=== PATIENT | female | born 1980 | race African-American/Black ===

== ENCOUNTER 2018-09-18 17:22 | Emergency (ER) | payer SELFPAY ==
[~2018-09-18] VITALS: Ht 177.8 cm; Wt 129.3 kg
[2018-09-18] MEDS ORDERED: IPRATROPIUM BROMIDE 0.02% 2.5 ML NEB NEB STA (17:29)
[2018-09-18] MEDS ORDERED: ALBUTEROL SULF 0.083% NEB SOLN 3 ML NEB NEB STA (17:29)
[2018-09-18] MEDS ORDERED: DEXAMETHASONE SOD PHOS 10 MG/1 ML VIAL IM ONE (17:30)
[2018-09-18] MEDS ORDERED: ALBUTEROL SULF 0.083% NEB SOLN 3 ML NEB ONE (18:49)
[2018-09-18] MEDS ORDERED: IPRATROPIUM BROMIDE 0.02% 2.5 ML NEB ONE (18:50)
--- NOTE | 2018-09-18 19:27 | Diagnostic Imaging Report ---
EXAMINATION: CHEST SINGLE (NOT PORTABLE) INDICATION: ^ Breathing inconsistent ^[id number] ^184 ^Y COMPARISON: None FINDINGS: AP view TUBES and LINES: None. LUNGS/PLEURA: Low lung volumes, otherwise the lungs are clear. No pleural effusion or pneumothorax. HEART AND MEDIASTINUM: The cardiomediastinal silhouette is unremarkable. BONES AND SOFT TISSUES: No acute osseous lesion. Soft tissues are unremarkable. UPPER ABDOMEN: No free air under the diaphragm. IMPRESSION: No acute thoracic abnormality. Signed by: Paul Gonzales MD on 09/18/2018 7:24 PM
--- NOTE | 2018-09-18 20:00 | NUR ---
pt left er without paperwork and rx. pt called at home message left that paperwork and rx at nurses station to be picked up.
== END 2018-09-18 20:00 | disposition home or self-care (01) ==
LOC: EDBD 17:22 → ER 17:22
DX: R05 Cough (principal); J45.30 Mild persistent asthma, uncomplicated
CPT/HCPCS: 71045; 94640

== ENCOUNTER 2018-12-28 23:32 | Emergency (ER) | payer MEDICARE ==
[~2018-12-28] VITALS: Ht 177.8 cm; Wt 136.1 kg
[2018-12-28] MEDS ORDERED: ONDANSETRON HCL INJ 2MG/ML 2ML 2 MG/ML VIAL IV STA (23:44)
[2018-12-28] MEDS ORDERED: SODIUM CHLORIDE 0.9% 1000ML 1,000 ML IV ONE (23:45)
[2018-12-28] MEDS ORDERED: ONDANSETRON HCL INJ 2MG/ML 2ML 2 MG/ML VIAL ONE (23:48)
[2018-12-28] MEDS ORDERED: DIATRIZOATE MEGL/DIATRIZOA SOD 30 ML BTL PO ONE (23:56)
[2018-12-29 00:16] LABS: BASOPHILS % 0.2 % (0.0-1.0); EOSINOPHILS # (AUTO) 0.2 (0.0-0.4); EOSINOPHILS % 2.7 % (0.0-6.0); HEMATOCRIT 32.6 % (34.2-44.1); HEMOGLOBIN 10.9 g/dL (12.0-16.0); LYMPHOCYTES # (AUTO) 2.3 (1.0-3.2); LYMPHOCYTES % 28.2 % (18.0-39.1); MEAN CORPUSCULAR HEMOGLOBIN 28.8 pg (28-32); MEAN CORPUSCULAR HGB CONC 33.4 g/dL (31-35); MEAN CORPUSCULAR VOLUME 86.2 fL (81-99); MONOCYTES # (AUTO) 0.7 (0.2-0.8); MONOCYTES % 8.1 % (4.4-11.3); NEUTROPHILS % 60.6 % (38.7-80.0); PLATELET COUNT 282 x10e3/uL (140-360); RED BLOOD COUNT 3.78 x10e6/uL (3.6-5.1); RED CELL DISTRIBUTION WIDTH 13.2 % (11.7-14.4)
[2018-12-29 00:27] LABS: ALANINE AMINOTRANSFERASE 6 IU/L (0-55); ALBUMIN 3.4 g/dL (3.5-5.0); ALBUMIN/GLOBULIN RATIO 1.1 (0.8-2.0); ALKALINE PHOSPHATASE 34 IU/L (40-150); AMYLASE 73 U/L (25-125); ANION GAP 12.1 mmol/L (8-16); BLOOD UREA NITROGEN 8 mg/dL (7-26); BUN/CREATININE RATIO 13 (6-25); CALCIUM 9.1 mg/dL (8.4-10.2); CARBON DIOXIDE 18 mmol/L (22-29); CHLORIDE 102 mmol/L (98-107); CREATININE, SERUM 0.61 mg/dL (0.57-1.11); EST GLOMERULAR FILTRATION RATE > 60 ML/MIN (60-); GLUCOSE 98 mg/dL (74-118); LIPASE 22 U/L (8-78); POTASSIUM 3.1 mmol/L (3.5-5.1); SODIUM 129 mmol/L (136-145)
--- NOTE | 2018-12-29 02:18 | Diagnostic Imaging Report ---
EXAM: First Trimester Obstetric Pelvic Ultrasound INDICATION: Left lower quadrant pain COMPARISON: None TECHNIQUE: Grayscale transverse and sagittal transabdominal and transvaginal images were obtained of the pelvis. Transvaginal imaging was medically necessary to better evaluate the endometrium, adnexa, and fetus. CLINICAL HISTORY: 38 year old A1 Last menstrual period: 11/20/2018 Clinical gestational age: 5 weeks 4 days FINDINGS: Uterus: Orientation: Normal Size: 10 x 5.7 x 7.3 cm, enlarged Mass: A 5.2 cm intramural fibroid in the left uterine wall. Cervix: Normal Gestational Sac: Location: Intrauterine Average sac diameter: 2.52 cm Estimated sonographic GA: 7 weeks 3 days Appearance: Normal in contour Subchorionic hemorrhage: None Yolk sac: Normal Embryo/Fetus: [place] rump length: 0.67 cm Estimated sonographic GA: 6 weeks 4 days Cardiac activity: 113 bpm The ovaries are not visualized, due to obscuration by bowel gas. No abnormalities identified in the adnexa. Cul-de-sac: No free fluid IMPRESSION: 1. Viable intrauterine : Routine followup. 2. Estimated sonographic gestational age: 6 weeks 4 days 3. Left uterine fibroid. CLASSIFICATION Viable: can potentially result in a liveborn baby Visualized embryo with FHT Nonviable: Findings diagnostic of failure * Ectopic * CRL >= 7 mm and no FHT * MSD >= 25 mm and no embryo * No FHT >= 2 weeks after US showed GS w/o YS * No FHT >= 11 days after US showed GS w/ YS Intrauterine of uncertain viability: Intrauterine GS with no FHT and no definite findings of failure of unknown location: Positive urine or serum test and no IUP or ectopic on US Diagnostic Criteria for Nonviable Early in the First Trimester N Engl J Med 2013;369:1443-51. DOI: 10.1056/[id number] Signed by: Taqueria Mahoney DO on 12/29/2018 2:15 AM
[2018-12-29 02:31] LABS: BILIRUBIN,URINE NEGATIVE (NEGATIVE); CLARITY,URINE CLEAR (CLEAR); COLOR,URINE YELLOW (YELLOW); KETONES,URINE NEGATIVE (NEGATIVE); LEUKOCYTE ESTERASE ,URINE TRACE (NEGATIVE); NITRITE,URINE NEGATIVE (NEGATIVE); PROTEIN,URINE DIPSTICK NEGATIVE (NEGATIVE); URINE UROBILINOGEN 0.2 mg/dL (0.2 - 1)
[2018-12-29 03:07] LABS: BACTERIA,URINE RARE /HPF; EPITHELIAL CELLS,URINE RARE /LPF; RBC,URINE 0-5 /HPF (0-5)
--- NOTE | 2018-12-29 04:18 | Diagnostic Imaging Report ---
EXAMINATION: CHEST SINGLE (PORTABLE) INDICATION: Cough COMPARISON: Chest radiograph 09/18/2018 FINDINGS: AP view TUBES and LINES: None. LUNGS: Lungs are well inflated. Lungs are clear. There is no evidence of pneumonia or pulmonary edema. PLEURA: No pleural effusion or pneumothorax. HEART AND MEDIASTINUM: The cardiomediastinal silhouette is unremarkable. BONES AND SOFT TISSUES: No acute osseous lesion. Soft tissues are unremarkable. UPPER ABDOMEN: No free air under the diaphragm. IMPRESSION: No acute thoracic abnormality. Signed by: Taqueria Mahoney DO on 12/29/2018 4:14 AM
--- OUTSIDE RECORDS SUMMARY | 2018-12-29 04:35 | XMS REPORT ---
Author Author Trista Mcfadden Organization [employer] Address Unknown Phone Unavailable Care Team Providers Care Program Supervisor Name Role Phone Trista Mcfadden CP Unavailable Allergies, Adverse Reactions, Alerts Substance Reaction Event Type N.K.D.A. 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 Citizen Of [place] May 17, 2016 Marital Status: single. May 17, 2016 Caffeine: yes. frequency:3-4 per week May 17, 2016 Exercise: no. May 17, 2016 Smoking/Tobacco Use: no. Patient is a: Never Smoker May 17, 2016 Alcohol: socially. 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
--- OUTSIDE RECORDS SUMMARY | 2018-12-29 04:35 | XMS REPORT ---
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
--- OUTSIDE RECORDS SUMMARY | 2018-12-29 04:35 | XMS REPORT | Continuity of Care Document ---
Author Author [employer] [facility] [employer] Address Unknown Phone Unavailable Care Team Providers Care Detective Lieutenant Name Role Phone [employer] Unavailable Unavailable Problems Problem Status Onset Date Classification Date Reported Comments Source E04.2 - NONTOXIC MULTINODULAR GOITER Active 02/20/2016 [facility] Other obesity due to excess calories Active Problem 10/20/2016 eCW: Galindo Mcfadden No-show for appointment Active Diagnosis 10/20/2016 eCW: Galindo Mcfadden Nontoxic single thyroid nodule Active Problem 10/20/2016 eCW: Galindo Mcfadden Medications No Data Provided for This Section Allergies, Adverse Reactions, Alerts Substance Category Reaction Severity Reaction type Status Date Reported Comments Source N.K.D.A. Adverse Reaction Info Not Available Adverse Reaction Active 05/17/2016 eCW: Galindo Mcfadden Immunizations No Data Provided for This Section Results No Data Provided for This Section Pathology Reports No Data Provided for This Section Diagnostic Reports Report Value Date Source Thyroid biopsy w guidance US FNA of left thyroid mass HISTORY: LT THYROID NODULE; COMPARISON: Thyroid ultrasound dated February 20, 2016 TECHNIQUE: After obtaining informed consent and explaining the risks and benefits of the procedure to the patient, the patient was placed on the ultrasound table in a supine position. Patient's questions were answered. The overlying area was cleaned with ChloraPrep and anesthetize with 2% Xylocaine. Using ultrasound guidance, a 25-gauge needle was placed into the 5.7 x 3.5 x 4.4 cm mass in the left lobe of the thyroid gland. 5 separate passes were made. The obtained material was placed on glass slides and additional material placed in CytoLyt solution and sent to cytology for further analysis. The patient tolerated the procedure well and no immediate complications were noted. SL: [id number] 03/12/2016 [facility] Thyroid US Study: Thyroid US Age: 35 years y/o Female Clinical Indication: Neck mass; Comparison: None TECHNIQUE: Sonographic evaluation of the thyroid gland is performed FINDINGS: The right thyroid gland measures 6.0 cm x 1.5 cm x 2.2 cm. The left thyroid gland measures 6.0 cm x 3.4 cm x 4.6 cm. The thyroid isthmus measures about 2.8 mm. There is marked heterogeneous thyroid parenchymal echotexture. Large dominant about 5.5 cm x 3.3 cm x 4.5 cm complex mass is present within the left thyroid lobe. IMPRESSION: 1. Heterogeneous thyroid with large dominant complex left thyroid lobe mass as detailed above. Thyroid FNA biopsy should be consider for further evaluation. SL: [id number] [facility]20[facility] Consultation Notes No Data Provided for This Section Discharge Summaries No Data Provided for This Section History and Physicals No Data Provided for This Section Vital Signs Vital Sign Value Date Comments Source Weight 286 05/17/2016 eCW: Galindo Mcfadden Height 70 05/17/2016 eCW: Galindo Mcfadden Diastolic (mm Hg) 76 05/17/2016 eCW: Galindo Mcfadden Systolic (mm Hg) 122 05/17/2016 eCW: Galindo Mcfadden Encounters Location Location Details Encounter Type Encounter Number Reason For Visit Attending Provider ADM Date DC Date Status Source [facility] Outpatient Imaging [facility] Outpt Diag Services [id number] Arron Bonilla 02/20/2016 02/21/2016 [facility] Imaging [facility] Outpt Diag Services [id number] rAron Bonilla 03/12/2016 03/13/2016 [facility] Galindo Mcfadden MD New Consult Thyroid [id number] 05/17/2016 05/17/2016 eCW: Galindo Mcfadden Procedures No Data Provided for This Section Assessment and Plan No Data Provided for This Section Plan of Care No Data Provided for This Section Social History Social History Date Source Social History ElementQualifiersDate Reported Language: . Danish May 17, 2016 Marital Status: single. May 17, 2016 Caffeine: yes. frequency:3-4 per week May 17, 2016 Exercise: no. May 17, 2016 Smoking/Tobacco Use: no. Patient is a: Never Smoker May 17, 2016 Alcohol: socially. 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
--- OUTSIDE RECORDS SUMMARY | 2018-12-29 04:35 | XMS REPORT | Summary of Care ---
Author Author [facility] Outpatient Imaging [facility] Outpatient Imaging [facility] Address Unknown Phone Unavailable Encounter HQ Encntr_alias(FIN) [id number] Date(s): 02/20/16 - 02/20/16 [facility] Outpatient Imaging [facility] [address] [facility] [address] [place], [place] [address]- [phone] Discharge Disposition: Home or Self Care Attending Physician: Arron Bonilla MD Vital Signs No data available for this section Problem List No data available for this section Allergies, Adverse Reactions, Alerts Substance Reaction Severity Status NKDA Active Medications No data available for this section Results No data available for this section Immunizations No data available for this section Procedures No data available for this section Social History No data available for this section Assessment and Plan No data available for this section
--- OUTSIDE RECORDS SUMMARY | 2018-12-29 04:35 | XMS REPORT ---
[facility] Address Unknown Phone Unavailable Care Team Providers Care Research Anthropologist Name Role Phone Chloe LENZ Unavailable Unavailable Kassie CROCKETT Unavailable Unavailable Payers Payer Name Policy Type Policy Number Effective Date Expiration Date Problems This patient has no known problems. Allergies, Adverse Reactions, Alerts Allergy Name Allergy Type Status Severity Reaction(s) Onset Date Inactive Date Treating Clinician Comments No Known Allergies DA Active U 2012-10-04 00:00:00 Medications This patient has no known medications. Results Test Description Test Time Test Comments Text Results Atomic Results Result Comments CHEST SINGLE (PORTABLE) 2018-12-29 04:13:00 [place] [address] Patient Name: HENRY YODER MR #: [id number] : 1980 Age/Sex: 38/F Req #: [id number] Adm Physician: Ordered by: KASEY LENZ MD Report #: [id number] Location: ER Room/Bed: Procedure: [id number] DX/CHEST SINGLE (PORTABLE) Exam Date: 12/29/18 Exam Time: 0055 REPORT STATUS: Signed EXAMINATION: CHEST SINGLE (PORTABLE) INDICATION: Cough COMPARISON: Chest radiograph 09/18/2018 FINDINGS: AP view TUBES and LINES: None. LUNGS: Lungs are well inflated. Lungs are clear. There is no evidence of pneumonia or pulmonary edema. PLEURA: No pleural effusion or pneumothorax. HEART AND MEDIASTINUM: The cardiomediastinal silhouette is unremarkable. BONES AND SOFT TISSUES: No acute osseous lesion. Soft tissues are unremarkable. UPPER ABDOMEN: No free air under the diaphragm. IMPRESSION: No acute thoracic abnormality. Signed by: Taqueria Mahoney DO on 12/29/2018 4:14 AM Dictated By: TAQUERIA MAHONEY DO 3 Transcribed By: FERN on 12/29/18413 COPY TO: KASEY LENZ MD OB 1st TRIM SINGLE GEST 2018-12-29 02:11:00 [place] [address] Patient Name: HENRY YODER MR #: [id number] : 1980 Age/Sex: 38/F Req #: [id number] Adm Physician: Ordered by: KASEY LENZ MD Report #: [id number] Location: ER Room/Bed: Procedure: [id number] US/US OB 1st TRIM SINGLE GEST Exam Date: 12/29/18 Exam Time: 127 REPORT STATUS: Signed EXAM: First Trimester Obstetric Pelvic Ultrasound INDICATION: Left lower quadrant pain COMPARISON: None TECHNIQUE: Grayscale transverse and sagittal transabdominal and transvaginal images were obtained of the pelvis. Transvaginal imaging was medically necessary to better evaluate the endometrium, adnexa, and fetus. CLINICAL HISTORY: 38 year old A1 Last menstrual period: 11/20/2018 Clinical gestational age: 5 weeks 4 days FINDINGS: Uterus: Orientation: Normal Size: 10 x 5.7 x 7.3 cm, enlarged Mass: A 5.2 cm intramural fibroid in the left uterine wall. Cervix: Normal Gestational Sac: Location: Intrauterine Average sac diameter: 2.52 cm Estimated sonographic GA: 7 weeks 3 days Appearance: Normal in contour Subchorionic hemorrhage: None Yolk sac: Normal Embryo/Fetus: [place] rump length: 0.67 cm Estimated sonographic GA: 6 weeks 4 days Cardiac activity: 113 bpm The ovaries are not visualized, due to obscuration by bowel gas. No abnormalities identified in the adnexa. Cul-de-sac: No free fluid IMPRESSION: 1. Viable intrauterine : Routine followup. 2. Estimated sonographic gestational age: 6 weeks 4 days 3. Left uterine fibroid. CLASSIFICATION Viable: can potentially result in a liveborn baby Visualized embryo with FHT Nonviable: Findings diagnostic of failure * Ectopic * CRL >=7 mm and no FHT * MSD >=25 mm and no embryo * No FHT >=2 weeks after US showed GS w/o YS * No FHT >=11 days after US showed GS w/ YS Intrauterine of uncertain viability: Intrauterine GS with no FHT and no definite findings of failure of unknown location: Positive urine or serum test and no IUP or ectopic on US Diagnostic Criteria for Nonviable Early in the First Trimester N Engl J Med 2013;369:1443-51. DOI: [id number] Signed by: Taqueria Mahoney DO on 12/29/2018 2:15 AM Dictated By: TAQUERIA MAHONEY DO 4 Transcribed By: FERN on 12/29/18214 COPY TO: KASEY LENZ MD CHEST SINGLE (NOT PORTABLE) 2018-09-18 19:23:00 [place] [address] Patient Name: HENRY YODER MR #: [id number] : 1980 Age/Sex: 37/F Req #: [id number] Adm Physician: Ordered by: KARIME GRAY NP Report #: [id number] Location: ER Room/Bed: Procedure: [id number] DX/CHEST SINGLE (NOT PORTABLE) Exam Date: 09/18/18 Exam Time: 1846 REPORT STATUS: Signed EXAMINATION: CHEST SINGLE (NOT PORTABLE) INDICATION: Breathing inconsistent [id number] Y COMPARISON: None FINDINGS: AP view TUBES and LINES: None. LUNGS/PLEURA: Low lung volumes, otherwise the lungs are clear. No pleural effusion or pneumothorax. HEART AND MEDIASTINUM: The cardiomediastinal silhouette is unremarkable. BONES AND SOFT TISSUES: No acute osseous lesion. Soft tissues are unremarkable. UPPER ABDOMEN: No free air under the diaphragm. IMPRESSION: No acute thoracic abnormality. Signed by: Paul Gonzales MD on 09/18/2018 7:24 PM Dictated By: FLAVIA GONZALES MD 23 Transcribed By: FERN on 09/18/181923 COPY TO: KARIME GRAY NP
--- OUTSIDE RECORDS SUMMARY | 2018-12-29 04:35 | XMS REPORT | Summary of Care ---
Author Author [facility] Outpatient Imaging [facility] Outpatient Imaging [facility] Address Unknown Phone Unavailable Encounter HQ Encntr_alias(FIN) [id number] Date(s): 03/12/16 - 03/12/16 [facility] Outpatient Imaging [facility] [address] [facility] [address] [place], [place] [address]- [phone] Discharge Disposition: Home or Self Care Attending [...]
== END 2018-12-29 03:38 | disposition home or self-care (01) ==
LOC: ER 23:32
DX: O23.11 Infections of bladder in pregnancy, first trimester (principal); N30.00 Acute cystitis without hematuria; O34.11 Maternal care for benign tumor of corpus uteri, first trimester; D25.9 Leiomyoma of uterus, unspecified; O26.891 Other specified pregnancy related conditions, first trimester; R10.32 Left lower quadrant pain; Z3A.01 Less than 8 weeks gestation of pregnancy
CPT/HCPCS: 36415; 71045; 76801; 80053; 81001; 82150; 83690; 84702; 85025; 99284; J2405; J7030

== ENCOUNTER 2019-01-15 16:36 | Emergency (ER) | payer MEDICARE ==
[~2019-01-15] VITALS: Ht 177.8 cm; Wt 136.1 kg
--- OUTSIDE RECORDS SUMMARY | 2019-01-15 16:39 | XMS REPORT | Continuity of Care Document ---
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 SL: [id number] 03/12/2016 [facility] Thyroid US Study: Thyroid US Age: [...] should be consider for further evaluation. SL: [id number] [facility]20[facility] Consultation Notes No Data Provided for [...] Provider ADM Date DC Date Status Source [facility] Outpatient Imaging [facility] Outpt Diag Services [id number] Arron Bonilla 02/20/2016 02/21/2016 [facility] Outpt Diag [facility] [id number] Arron Bonilla 03/12/2016 03/13/2016 [facility] Galindo Mcfadden MD New Consult Thyroid [id number] 05/17/2016 05/17/2016 eCW: Galindo Mcfadden Procedures No Data Provided for This Section Assessment and Plan No Data Provided for This Section Plan of Care No Data Provided for This Section Social History Social History Date Source Social History ElementQualifiersDate Reported Language: . Kosovan May 17, 2016 Marital Status: single. May 17, 2016 Caffeine: yes. frequency:3-4 per week May 17, 2016 Exercise: no. May 17, 2016 Smoking/Tobacco Use: no. Patient is a: Never Smoker May 17, 2016 Alcohol: socially. 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
[2019-01-15] MEDS ORDERED: MORPHINE SULFATE INJ 4 MG/ML INJ 1ML IV ONE (16:51)
[2019-01-15] MEDS ORDERED: SODIUM CHLORIDE 0.9% 1000ML 1,000 ML IV STA ×2 (16:51)
[2019-01-15] MEDS ORDERED: ONDANSETRON HCL INJ 2MG/ML 2ML 2 MG/ML VIAL IV ONE (16:51)
[2019-01-15] MEDS ORDERED: ONDANSETRON HCL INJ 2MG/ML 2ML 2 MG/ML VIAL ONE (17:09)
[2019-01-15] MEDS ORDERED: MORPHINE SULFATE INJ 4 MG/ML INJ 1ML ONE (17:09)
[2019-01-15 17:13] LABS: BASOPHILS % 0.3 % (0.0-1.0); EOSINOPHILS # (AUTO) 0.2 (0.0-0.4); EOSINOPHILS % 2.3 % (0.0-6.0); HEMATOCRIT 31.7 % (34.2-44.1); HEMOGLOBIN 10.5 g/dL (12.0-16.0); LYMPHOCYTES # (AUTO) 3.4 (1.0-3.2); LYMPHOCYTES % 35.8 % (18.0-39.1); MEAN CORPUSCULAR HEMOGLOBIN 28.6 pg (28-32); MEAN CORPUSCULAR HGB CONC 33.1 g/dL (31-35); MEAN CORPUSCULAR VOLUME 86.4 fL (81-99); MONOCYTES # (AUTO) 0.7 (0.2-0.8); MONOCYTES % 7.6 % (4.4-11.3); NEUTROPHILS # (AUTO) 5.1 (2.1-6.9); NEUTROPHILS % 53.7 % (38.7-80.0); PLATELET COUNT 327 x10e3/uL (140-360); RED BLOOD COUNT 3.67 x10e6/uL (3.6-5.1)
[2019-01-15 17:33] LABS: ALANINE AMINOTRANSFERASE 10 IU/L (0-55); ALBUMIN 3.4 g/dL (3.5-5.0); ALBUMIN/GLOBULIN RATIO 0.9 (0.8-2.0); ALKALINE PHOSPHATASE 30 IU/L (40-150); ANION GAP 16.1 mmol/L (8-16); BLOOD UREA NITROGEN 8 mg/dL (7-26); BUN/CREATININE RATIO 12 (6-25); CALCIUM 9.4 mg/dL (8.4-10.2); CARBON DIOXIDE 17 mmol/L (22-29); CHLORIDE 105 mmol/L (98-107); CREATININE, SERUM 0.68 mg/dL (0.57-1.11); EST GLOMERULAR FILTRATION RATE > 60 ML/MIN (60-); GLUCOSE 105 mg/dL (74-118); LIPASE 22 U/L (8-78); MAGNESIUM 1.7 MG/DL (1.3-2.1); POTASSIUM 3.1 mmol/L (3.5-5.1); SODIUM 135 mmol/L (136-145)
[2019-01-15 17:56] LABS: HCG,QUANTITATIVE 80614.68 mIU/mL (0-10)
[2019-01-15] MEDS ORDERED: POTASSIUM CHLORIDE 20 MEQ TAB CR PO ONE (19:15)
[2019-01-15 19:20] LABS: BILIRUBIN,URINE NEGATIVE (NEGATIVE); CLARITY,URINE CLEAR (CLEAR); COLOR,URINE YELLOW (YELLOW); KETONES,URINE NEGATIVE (NEGATIVE); LEUKOCYTE ESTERASE ,URINE NEGATIVE (NEGATIVE); NITRITE,URINE NEGATIVE (NEGATIVE); PROTEIN,URINE DIPSTICK NEGATIVE (NEGATIVE); URINE UROBILINOGEN 0.2 mg/dL (0.2 - 1)
[2019-01-15 19:25] LABS: AMPHETAMINES SCREEN,URINE NEGATIVE (NEGATIVE); BENZODIAZEPINES SCREEN,URINE NEGATIVE (NEGATIVE); PHENCYCLIDINE SCREEN,URINE NEGATIVE (NEGATIVE)
[2019-01-15 19:42] LABS: AMORPHOUS SEDIMENT,URINE MODERATE (FEW); BACTERIA,URINE MODERATE /HPF; EPITHELIAL CELLS,URINE MODERATE /LPF; MUCUS,URINE FEW (RARE)
--- NOTE | 2019-01-15 20:17 | Diagnostic Imaging Report ---
EXAM: Obstetric Pelvic Ultrasound INDICATION: ^8 WEEKS, PAIN PELVIC, HX FIBROIDS ^[id number] ^1847 ^Y COMPARISON: OB ultrasound 12/29/2018 TECHNIQUE: Transabdominal and transvaginal evaluation of the pelvis was performed in the transverse and longitudinal planes. CLINICAL HISTORY: 38 year old, last menstrual period: 11/20/2018 FINDINGS: Uterus: Orientation: Normal Size: 11.4 x 7.2 x 9.2 cm, enlarged Mass: 2.4 cm intramural fibroid Cervix: Normal Gestational Sac: Location: Intrauterine Average sac diameter: 6.0 x 1.5 x 5.7 cm Estimated sonographic GA: 9 weeks and 3 days Appearance: Normal in contour but it contains a 1.9 cm anechoic area Subchorionic hemorrhage: None Yolk sac: Normal Embryo/Fetus: [place] rump length: 2.6 cm Estimated sonographic GA: 9 weeks and 3 days Cardiac activity: 152 bpm Right ovary Size: 15.1 x 17.9 x 19.8 cm Mass/Cyst: There is a large 13.5 x 16.8 x 18.8 cm anechoic cyst in the right ovary Left ovary Size: 2.2 x 2.6 x 2.8 cm Mass/Cyst: None Cul-de-sac: No free fluid IMPRESSION: Viable intrauterine with interval grow when compared to 12/29/2018. Large anechoic cyst in the right ovary measuring up to 18.8 cm. This was not included on prior exam. Signed by: Dr. Stephanie Rivera M.D. on 01/15/2019 8:13 PM
== END 2019-01-15 21:46 | disposition home or self-care (01) ==
LOC: ER 16:36
DX: O34.81 Maternal care for other abnormalities of pelvic organs, first trimester (principal); N83.201 Unspecified ovarian cyst, right side; R10.32 Left lower quadrant pain
CPT/HCPCS: 36415; 76817; 80053; 80307; 81001; 83690; 83735; 84702; 85025; 86850; 86900; 87086; 99283; J2270; J2405; J7030